=== PATIENT | female | born 1975 | race Caucasian/White ===

== ENCOUNTER 2016-10-30 08:44 | Emergency (ER) | payer SELFPAY ==
--- NOTE | ~2016-10-30 | ER ---
PATIENT'S NAME: TAMMY CHAVIRA [facility] AGE: 40 Y [address] ROOM: [place] [address] LOCATION: [facility] ADMIT DATE: 10/30/2016 ER/Outpatient Report DISCHARGE DATE: 10/30/2016 FAMILY PHYSICIAN: Gema Gary MD ATTENDING PHYSICIAN: Stephen Vance TIME OF ARRIVAL: 0844 hours. TIME OF EVALUATION: 0847 hours. CHIEF COMPLAINT: Abdominal pain and flank pain. HISTORY OF PRESENT ILLNESS: The patient is a 40-year-old female who presents to emergency department today with chief complaint of left flank pain. She reports this started about 4 o'clock this morning. Denies any fevers or chills. Does have some nausea and vomiting x2. Denies any diarrhea or constipation. She does have some pain with urination. She had sharp stabbing pain to the left side, radiating to the left lower quadrant. She does report she has a history kidney stones in the past. Pain is currently 8/10 in severity. This does feel similar to previous kidney stones. PAST MEDICAL HISTORY: [facility]. PAST SURGICAL HISTORY: Lumbar fusion, gallbladder, sinus surgery, hernia, hysterectomy, bilateral knee scope, leg ablation, stents to the left groin, dilation of vein. SOCIAL HISTORY: The patient denies any tobacco use. Reports occasional alcohol use. Denies any illicit drug use. ALLERGIES: TO ERYTHROMYCIN. MEDICATIONS: Please see list. PRIMARY CARE DOCTOR: Gema Gary MD. PATIENT'S NAME: CAITTAMMY Cruz [facility] AGE: 40 Y [address] ROOM: [place] [address] LOCATION: [facility] ADMIT DATE: 10/30/2016 ER/Outpatient Report DISCHARGE DATE: 10/30/2016 FAMILY PHYSICIAN: Gema Gary MD ATTENDING PHYSICIAN: Stephen Vance REVIEW OF SYSTEMS: All systems are reviewed by myself and negative with the exception of those discussed in HPI and past medical history. PHYSICAL EXAMINATION: VITAL SIGNS: Weight 111 kg. Blood pressure 132/88, pulse 78, respiratory rate 22, temperature 96.0, oxygen saturation 97% on room air. GENERAL: The patient is a 40-year-old female, who appears stated age, in acute moderate discomfort secondary to pain. HEENT: Head is normocephalic, atraumatic. Pupils are equal, round, and reactive to light. Mucous membranes moist. NECK: Supple. There is no nuchal rigidity. CARDIOVASCULAR: Regular rate and rhythm. No murmurs, rubs, or gallops. LUNGS: Clear to auscultation bilaterally. No wheezes, rales, or rhonchi. ABDOMEN: Soft, mild left CVA tenderness to palpation. There is no rebound rigidity, or guarding. Positive bowel sounds. MUSCULOSKELETAL: The patient moves all 4 extremities. SKIN: Warm and dry. No rashes or lesions noted. LABORATORY DATA AND X-RAYS: CBC is normal. Lactate is normal. CMP is normal. LFT is normal. Procalcitonin is less than 0.05. Urinalysis shows 25 leukocyte esterase, 15 protein, 250 blood, 10-20 rbc's, many bacteria. Urine hCG is negative. CT scan of the abdomen and pelvis is obtained. I have discussed results with the radiologist shows no acute process. There is constipation. There is no evidence of stone. IMPRESSION: 1. Acute left flank pain. 2. Urinary tract infection, suspect kidney. 3. Initial visit. EMERGENCY DEPARTMENT COURSE: The patient brought back to the examination room. Seen and evaluated by myself. IV is established. Laboratory analysis and imaging are obtained as described above. The patient given a liter of normal saline, 4 mg of Zofran, 30 mg of Toradol, 1 mg of Dilaudid, this is resulted in significant improvement in the patient's symptoms. I have discussed results with the patient and her at the bedside. I will start the patient on Keflex. I have asked that she follows up with her primary care doctor, Dr. Gary in 2- 3 days for re-evaluation. I have discussed return to care instructions including worsening symptoms or other concerns to return to the emergency department as soon as possible. She is to take her home pain medicine as needed. The patient is agreeable without further questions at the time of disposition. The patient discharged home in good condition. PATIENT'S NAME: TAMMY CHAVIRA [facility] AGE: 40 Y [address] ROOM: [place] [address] LOCATION: [facility] ADMIT DATE: 10/30/2016 ER/Outpatient Report DISCHARGE DATE: 10/30/2016 FAMILY PHYSICIAN: Gema Gary MD ATTENDING PHYSICIAN: Stephen Vance DO OLY ABEL/modl /[id number] d: 10/30/164 t: 10/31/16 07, OUTPATIENT REPORT
[2016-10-30 09:08] LABS: BASOPHIL % 0.5 %; EOSINOPHIL # 0.2 K/uL (0.0-0.5); HEMATOCRIT 41.5 % (33.0-46.0); HEMOGLOBIN 13.9 g/dL (11.0-15.0); IMMATURE GRANULOCYTE % 0.3 %; LYMPHOCYTE # 2.4 K/uL (0.8-4.0); LYMPHOCYTE % 31.5 %; MCH 30.1 pg (27.0-34.0); MCHC 33.5 gm/dL (32.0-36.5); MCV 89.8 fl (83.0-98.0); MONOCYTE # 0.5 K/uL (0.0-1.0); MONOCYTE % 7.1 %; MPV 8.9 fl (9.4-12.4); NEUTROPHIL # (ANC) 4.5 K/uL (1.8-7.8); NEUTROPHIL % 58.6 %; NRBC % 0 /100WBC (0-0.00); PLATELET COUNT 261 K/uL (150-450); RBC 4.62 M/uL (3.50-5.50); WBC 7.6 K/uL (4.0-11.0)
[2016-10-30 09:31] LABS: ALBUMIN 3.9 gm/dL (3.5-5.0); ALK PHOS 89 IU/L (33-138); ALT 23 IU/L (12-78); ANION GAP 13.7 (10.0-19.0); AST 18 IU/L (10-40); BLOOD UREA NITROGEN 8 mg/dL (6-24); CALCIUM 8.8 mg/dL (8.5-10.5); CHLORIDE 110 mMol/L (96-110); CO2 20 mMol/L (22-32); CREATININE 0.7 mg/dL (0.5-1.1); ESTIMATED GFR (MDRD EQUATION) > 60; POTASSIUM 3.7 mMol/L (3.7-5.1); SODIUM 140 mMol/L (135-145); TOTAL BILIRUBIN 0.6 mg/dL (0.0-1.5); TOTAL PROTEIN 7.2 g/dL (6.0-8.4)
[2016-10-30 09:33] LABS: BILIRUBIN URINE NEGATIVE (NEGATIVE); BLOOD URINE 250 /UL (NEGATIVE); COLOR URINE YELLOW (YELLOW); GLUCOSE URINE NEGATIVE (NEGATIVE); KETONE URINE 5 mg/dL (NEGATIVE); LEUKOCYTES URINE 25 /UL (NEGATIVE); NITRITE URINE NEGATIVE (NEGATIVE); PROTEIN URINE 15 mg/dL (NEGATIVE); TURBIDITY URINE CLEAR (CLEAR); UROBILINOGEN URINE NORMAL (NORMAL)
[2016-10-30 09:55] LABS: BACTERIA URINE MANY (NEGATIVE)
== END 2016-10-30 10:55 | disposition disaster alternative care site (69) ==
LOC: GMED 08:44
PROVIDERS: Emergency Medicine
DX: N39.0 Urinary tract infection, site not specified (principal); Z87.442 Personal history of urinary calculi; Z88.1 Allergy status to other antibiotic agents; Z90.710 Acquired absence of both cervix and uterus; Z95.828 Presence of other vascular implants and grafts; Z98.890 Other specified postprocedural states
CPT/HCPCS: J1170; J1885; J2405; J7030